=== PATIENT | female | born 2000 | race African-American/Black ===

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

== ENCOUNTER 2022-03-08 15:45 | Emergency (ER) | payer OTHER ==
[2022-03-08] MEDS ORDERED: Ibuprofen 200 MG TAB ONE (17:59)
[2022-03-08 18:01] LABS: Bacteria/HPF None Seen HPF (None Seen); Bilirubin Negative (Negative); Blood, Urine 2+ (Negative); Clarity Clear (Clear); Glucose, Urine (Dipstick) Normal (Negative); Ketone, Urine Negative (Negative); Leukocyte Negative Leu/uL (Negative); Nitrite Negative (Negative); Protein, Urine (Dipstick) Negative (Neg-Trace); RBC/HPF 21-50 HPF (0-3); Specific Gravity, Urine 1.025 (1.002-1.036); Squamous Epithelial 0-3 HPF (0-3); Urobilinogen Normal mg/dL (Less than 2); WBC/HPF 0-3 HPF (0-3)
[2022-03-08 18:02] LABS: Pregnancy Test - Urine (BHCG) Negative (Negative); Pregu Control Background? CLEAR/WHITE (CLR/WHITE); Pregu Control Bar Appear? YES (CONTROL BAR); Specific Gravity 1.025 (1.002-1.036)
== END 2022-03-08 18:46 | disposition home or self-care (01) ==
LOC: ERS 15:45
DX: R10.9 Unspecified abdominal pain (principal)
CPT/HCPCS: 70450; 71045; 81003; 81015; 81025; 93005